=== PATIENT | female | born 1990 | race African-American/Black ===

== ENCOUNTER 2019-08-26 16:00 | Emergency (ER) | payer MEDICAID, SELFPAY ==
[2019-08-26 16:03] VITALS: BP 134/88; PULSE 91; RESP 18; TEMP 36.6; O2SAT 99; BMI 42.5
--- NOTE | 2019-08-26 17:35 | ED.VIS.GEN ---
History of Present Illness Chief Complaint: Dental Informant: Patient Narrative: Patient states that she has holes in 3 of her right lower posterior teeth. When I asked her how long she has been in the severe pain she tells me 1 week. She is making an appointment with [facility] when I walk into the room to speak with her. She now has an appointment in just under 2 days. The dental clinic was able to see her tomorrow but she stated that she could not make that appointment that she needs to work. She states she has been using Orajel and 3 other creams. States that she is been squeezing an abscess on the left lower jawline. No fevers. She states that she took a half a Percocet yesterday and passed out at work. States she has not been able to go to her second job but is been able to work her first job. Past Medical History - Allergies and Home Meds Allergies/Adverse Reactions: Allergies No Known Allergies Allergy (Verified 08/26/19 16:05) Review of Systems General: Denies: Chills, Fever, Sweats Eyes: Denies: Visual changes - bilaterally, Diplopia ENT: Reports: Right ear pain, - - Dental pain as per history of present illness. Denies: Rhinorrhea, Sore throat Cardiovascular: Denies: Chest pain, Palpitations Respiratory: Denies: Dyspnea, Cough, Dyspnea on exertion Gastrointestinal: Denies: Abdominal pain, Nausea, Vomiting, Diarrhea, Melena, Hematochezia Genitourinary: Denies: Dysuria, Hematuria, Frequency Musculoskeletal: Denies: Back pain, Extremity Pain Skin: Denies: Rash, Wounds Neurological: Denies: Headache, Weakness, Numbness Physical Exam Vital Signs/Narrative: Vital Signs Temp Pulse Resp BP Pulse Ox 08/26/19 16:03 98 F 91 18 134/88 H 99 Inital Vital Signs reviewed: Yes General: Well nourished, Well developed, No Acute Distress, - - Patient is at times speaking normally on the phone and other times dropping to her knees crying. Head: Normocephalic, Atraumatic Eyes: Perrl, EOMI ENT: Moist mucous membranes, No rhinorrhea, - - Patient has dental pain to percussion on the right lower molars. I see focal decay but do not see any obvious abscess. The floor the mouth is soft. There is no mandibular swelling or erythema. Neck: Supple, Nontender Cardiovascular: Regular rate, Regular rhythm, No murmurs Respiratory: No distress, CTA bilaterally, Chest nontender Abdomen: Soft, Nontender, Nondistended, Normal bowel sounds Back: Nontender, Normal Inspection Extremities: Nontender, No edema Skin: Normal color, No rash Neurological: Alert, Oriented x3, Cranial nerves II-XII grossly intact, Normal Strength, Normal Sensation Psychological: Normal affect, Normal Mood Diagnostic/Tx/Re-eval - Medical Decision Making We will write the patient to have Motrin, few [place], and penicillin. She is to keep her appointment at the dentist. ED Disposition - Plan for ED Patient: Disposition: Home or Assisted Living Diagnosis: Dental caries Prescriptions: Ibuprofen [Motrin] 800 mg PO TID PRN PRN #20 tab PRN Reason: pain Prescription Printed Hydrocodone Bitart/Apap 5-325 [[place] 5MG-325MG] 1 tab PO Q6H PRN PRN 3 Days #10 tab PRN Reason: Pain Prescription Printed Penicillin V Potassium 500 mg PO 4X/DAY #40 tab Prescription Printed Additional Instructions: You need to keep your appointment with your dentist.
[2019-08-26] MEDS: Penicillin Vk 250 MG Tablet 500 MG PO (17:56)
[2019-08-26] MEDS: Ibuprofen 400 MG Tablet 800 MG PO (17:56)
== END 2019-08-26 18:08 | disposition home or self-care (01) ==
LOC: ED 18:01
PROVIDERS: Emergency Provider Emergency Medicine
DX: K02.9 Dental caries, unspecified (principal)
CPT/HCPCS: 41800; 64999; 99283